=== PATIENT | female | born 1950 | race Caucasian/White ===

== ENCOUNTER 2021-04-09 12:47 | Outpatient (RCR) | payer MEDICARE, SELFPAY | END 2021-05-24 11:06 | disposition home or self-care (01) | LOC: HO.WCC 12:47 | PROVIDERS: PCP Internal Medicine; Visit Provider Physician Assistant | DX: E11.622 Type 2 diabetes mellitus with other skin ulcer (principal); L97.812 Non-pressure chronic ulcer of other part of right lower leg with fat layer exposed; S61.215A Laceration without foreign body of left ring finger without damage to nail, initial encounter; T63.441A Toxic effect of venom of bees, accidental (unintentional), initial encounter; I10 Essential (primary) hypertension; Z87.891 Personal history of nicotine dependence | CPT/HCPCS: 11042; 97597; 99212; 99213; 99214 ==

== ENCOUNTER → 2021-07-19 12:58 | Outpatient (BNV) | payer MEDICARE, SELFPAY | PROVIDERS: PCP Nurse Practitioner Family; Visit Provider Internal Medicine | DX: D46.1 Refractory anemia with ring sideroblasts (principal); D75.839 Thrombocytosis, unspecified | CPT/HCPCS: 99213; 99214 ==

== ENCOUNTER 2021-07-27 12:21 | Day surgery (SDC) | payer MEDICARE, SELFPAY ==
--- NOTE | 2021-07-23 08:43 | HO.ANESPROP2 ---
HPI - Anesthesia Eval Consult details Narrative: 70yo F for Bone Marrow Biopsy PMFSH Active Problems Active Problems: All Active Problems (Updated 07/20/21 @ 08:30 by Shahnaz Kaur MD) Cellulitis (Acute) Wound cellulitis (Acute) Anemia (Chronic) Past Medical History Medical History (Updated 07/20/21 @ 08:30 by Shahnaz Kaur MD) Anxiety Diabetes mellitus Hyperlipidemia Hypertension Insomnia Major depression Pilonidal cyst Family History Family History (Updated 07/20/21 @ 08:32 by Shahnaz Kaur MD) Maternal Aunt Rectal cancer Breast cancer Father Prostate cancer Family/Other Breast cancer Social History Social History Patient Tobacco Use Status: Former Tobacco user Meds Allergies Allergy/AdvReac Type Severity Reaction Status Date / Time No Known Allergies Allergy Verified 04/02/21 10:16 Home Medications Medication Instructions Recorded Confirmed Last Taken Type cholecalciferol (vitamin D3) 25 25 mcg PO DAILY 04/02/21 07/19/21 Unknown History mcg (1,000 unit) capsule fluoxetine 20 mg capsule 20 mg PO DAILY 04/02/21 07/19/21 Unknown History lorazepam 0.5 mg tablet 0.5 mg PO DAILY PRN 04/02/21 07/19/21 Unknown History magnesium oxide 400 mg PO DAILY PRN 04/02/21 07/19/21 Unknown History metformin 500 mg tablet 500 mg PO BID 04/02/21 07/19/21 Unknown History omeprazole 20 mg capsule,delayed 20 mg PO DAILY 04/02/21 07/19/21 Unknown History release zolpidem 10 mg tablet 5 mg PO BEDTIME PRN 04/02/21 07/19/21 Unknown History Exam Exam Date and Time: July 23, 2021 0843 Pertinent Lab Results Pertinent Lab Results: Laboratory Tests 07/19/21 07/19/21 13:49 13:49 WBC 8.9 Hgb 9.4 L Hct 28.1 L Plt Count 631 H Sodium 139 Potassium 4.6 Chloride 107 Carbon Dioxide 25 BUN 24 H Creatinine 0.85 Assessment and Plan Assessment Anesthesia Assessment: Chart Reviewed
[2021-07-27 12:54] VITALS: BMI 27.4
[2021-07-27 13:11] VITALS: BP 156/75; PULSE 85; RESP 16; TEMP 36.7; O2SAT 97
[2021-07-27 13:13] LABS: Glucose, Whole Blood 115 mg/dL (60-115)
--- NOTE | 2021-07-27 13:16 | PC.NURSE ---
Patient arrived to [facility] wearing full upper denture. One tooth on left side chipped down to its base. Patient stated It happened this morning when I woke up, I sleep with my dentures in sometimes and found the tooth in my pillow . Dentures removed for procedure and placed in labeled blue cup.
[2021-07-27] MEDS: Lactated Ringers 1,000 ML 100 ML IVCONT (13:25)
--- NOTE | 2021-07-27 14:00 | PC.NURSE ---
Patient states she took liquid Imodium this afternoon at 12pm. This liquid is not a clear and therefore, per anesthesia, case would have to be delayed. Dr. Kaur and Dr. Matthew at bedside to discuss options with patient. Decision to proceed under Local. Patient passed off to Saji Beth, OR nurse.
[2021-07-27] MEDS: LORazepam 1 MG TABLET PO (14:04)
[2021-07-27 14:45] VITALS: BP 135/69; PULSE 87; RESP 16; TEMP 37.1; O2SAT 99
--- NOTE | 2021-07-27 14:54 | PM.HEMONCBM ---
Bone Marrow Aspiration - Bone Marrow Aspiration Procedure:: Diagnostic bone marrow aspiration and biopsy Pre Op Diagnosis:: Anemia and thrombocytosis Post Op Diagnosis:: Anemia and thrombocytosis Surgeon:: Shahnaz Kaur MD Anesthesia:: Local anesthesia Consent:: Informed consent obtained from the patient for the procedure. Pros and cons of biopsy explained. The patient was willing to proceed with the procedure under local anesthesia. Procedure in Detail:: The patient was positioned in the right lateral decubitus and the left posterior superior iliac spine prepped and draped. Under aseptic precautions, 10 mL of 2% and 5 mL of 1% lidocaine used for local anesthesia. With the Jamshidi needle, 8 mL of aspirate and 1 cm core biopsy obtained without any complications. Bandage was applied and patient was positioned on back for 10 to 15 minutes after the procedure. The patient was advised to call us if she develops any pain or swelling at the surgical site. Follow up in 2 weeks.
[2021-07-27 15:00] VITALS: BP 141/93; PULSE 85; RESP 16; O2SAT 97
[2021-07-27 15:13] VITALS: PULSE 89; RESP 16; TEMP 37.3; O2SAT 96
[2021-07-27 16:31] LABS: Bone Marrow SEE SEPARATE REPORT
== END 2021-07-27 15:15 | disposition home or self-care (01) ==
PROVIDERS: Pathology Anatomic Pathology & Clinical Pathology; PCP Nurse Practitioner Family; Visit Provider Internal Medicine
PROC: (CPT 38221; principal; 2021-07-27 14:00)
DX: D53.9 Nutritional anemia, unspecified (principal); D75.839 Thrombocytosis, unspecified; D75.89 Other specified diseases of blood and blood-forming organs; D46.9 Myelodysplastic syndrome, unspecified; D80.1 Nonfamilial hypogammaglobulinemia; R63.4 Abnormal weight loss; Z68.29 Body mass index [BMI] 29.0-29.9, adult; E11.9 Type 2 diabetes mellitus without complications; I10 Essential (primary) hypertension; E78.5 Hyperlipidemia, unspecified; F41.1 Generalized anxiety disorder; F32.9 Major depressive disorder, single episode, unspecified; Z79.84 Long term (current) use of oral hypoglycemic drugs; Z79.899 Other long term (current) drug therapy; Z87.891 Personal history of nicotine dependence
CPT/HCPCS: 38222; 36415; 81206; 81207; 81219; 81270; 81339; 81347; 82947; 85097; 88184; 88185; 88237; 88264; 88305; 88311; 88313; 88374; J1642; J2250; J3010

== ENCOUNTER 2021-10-02 10:19 | Outpatient (REF) | payer MEDICARE, SELFPAY ==
--- NOTE | ~2021-10-02 | XR_ITS ---
EXAMINATION: XR RIBS, LEFT, AND CHEST CLINICAL INFORMATION: Pleurodynia. COMPARISON: 07/21/2017 TECHNIQUE: 3 views of the left ribs and AP view of the chest were obtained. FINDINGS: Minimal dependent atelectasis or pleural parenchymal scarring at the left lung base.. No consolidation, pneumothorax, or pleural effusion. The cardiomediastinal silhouette and pulmonary vasculature are normal. There is a fracture of the left 10th rib posterolaterally which is possibly subacute to chronic in nature. Subtle periosteal bone formation is suspected in this region. No additional fractures are identified. Degenerative spondylosis is present in the thoracic spine. There is a 1 cm focus of calcific tendinitis at the left proximal humerus, likely at the rotator cuff insertion. XR/XR ribs LT min 3V w CXR1V IMPRESSION: 1. Fracture at the posterolateral aspect of the left 10th rib, possibly subacute to chronic. 2. No additional fractures are identified. 3. No acute pulmonary findings. No pneumothorax or effusion.
== END 2021-10-02 10:20 | disposition home or self-care (01) ==
LOC: HO.HMGCX 10:19
PROVIDERS: PCP Nurse Practitioner Family; Visit Provider Physician Assistant
DX: R07.81 Pleurodynia (principal)
CPT/HCPCS: 71101

== ENCOUNTER 2021-12-23 20:36 | Emergency (ER) | payer MEDICARE, SELFPAY ==
--- NOTE | ~2021-12-23 | CT_ITS ---
EXAMINATION: CT ABDOMEN AND PELVIS WITH CONTRAST CLINICAL INFORMATION: Abdominal pain, diarrhea COMPARISON: None TECHNIQUE: Multidetector volumetric images were obtained from the superior aspect of the liver through the pubic symphysis following administration 85 mL of Omnipaque 350 intravenous contrast. Sagittal and coronal reformatted images were obtained on the technologist's workstation. Oral contrast: No This CT examination was performed using dose optimization techniques as appropriate, variously including the following: *Automated exposure control *Adjustment of mA and/or kV according to patient size (this includes techniques or standardized protocols for targeted exams where dose is matched to indication/reason for exam; i.e. extremities or head) *Use of iterative reconstruction technique DLP: 737 mGy-cm FINDINGS: LUNG BASES: Mild bibasilar atelectasis versus scarring. Coronary artery calcifications are present. Moderate-sized hiatal hernia. LIVER, GALLBLADDER, AND BILIARY TREE: The liver is normal in size, shape, and attenuation. No focal hepatic lesion or biliary ductal dilatation is present. Cholelithiasis is noted. PANCREAS: Unremarkable. SPLEEN: Unremarkable. ADRENAL GLANDS: Unremarkable. KIDNEYS AND URETERS: Bilateral nephrograms are symmetric. There is moderate bilateral hydronephrosis with no obstructing calculus seen. There is a mildly hypodense 1.1 cm lesion in the lower right kidney measuring 51 Hounsfield units. BLADDER: Unremarkable. GASTROINTESTINAL TRACT: No evidence of bowel obstruction. There is colonic diverticulosis without convincing diverticulitis. Assessment for wall thickening in some segments of the colon is limited due to luminal collapse, though no significant pericolonic stranding is seen to strongly suggest a colitis. The appendix is unremarkable. No free fluid or free air is seen. ABDOMINAL WALL: No significant hernia is appreciated. LYMPH NODES: Normal. VASCULAR: There is atherosclerotic calcification along the aorta. PELVIC VISCERA: Unremarkable. OSSEOUS STRUCTURES: Degenerative changes are noted in the spine. CT/CT abdomen pelvis w con IMPRESSION: 1. No acute bowel abnormality identified. 2. Moderate bilateral hydronephrosis without obstructing calculus. 3. Mildly hypodense 1.1 cm lesion in the lower right kidney, indeterminate. This may represent a hyperdense cyst or possibly a mass, and further evaluation with renal ultrasound is recommended. 4. Cholelithiasis. 5. Moderate-sized hiatal hernia.
[2021-12-23 20:44] VITALS: BP 160/61; BP 93/66; PULSE 91; PULSE 96; RESP 18; TEMP 37.1; O2SAT 94; O2SAT 96; BMI 31.3
--- NOTE | 2021-12-23 21:06 | ED.NAVMDI ---
HPI - Nausea/Vomiting/Diarrhea General Chief complaint: Nausea/Vomiting/Diarrhea Stated complaint: Diarrhea/Poor Intake Time Seen by Provider: 12/23/21 21:04 Source: patient Mode of arrival: EMS Limitations: no limitations History of Present Illness MD elicited complaint: diarrhea and abdominal pain Pertinent past history: other (IBS) Onset (ago): week(s) (1) Description of diarrhea: mucus and watery Associated nausea: Yes Associated abdominal pain: Yes Location of pain: epigastric Pain consistency: intermittent Severity: moderate Quality: cramping Exacerbating factors: eating Relieving factors: none Context: other (denies any known risk factors) Associated symptoms: loss of appetite, malaise, nausea/vomiting and weakness Related Data Home Medications Medication Instructions Recorded Confirmed lorazepam 0.5 mg tablet 0.5 mg PO DAILY PRN Anxiety 04/02/21 09/15/21 magnesium oxide 1,000 mg PO DAILY PRN Leg Cramps 04/02/21 09/15/21 metformin 500 mg tablet 500 mg PO BID 04/02/21 09/15/21 zolpidem 10 mg tablet 5 mg PO BEDTIME PRN Insomnia 04/02/21 09/15/21 Imodium 1 mg PO DAILY 07/27/21 09/15/21 copper 2 mg tablet 2 mg PO DAILY 09/01/21 09/15/21 epoetin tawnya 10,000 unit/mL 2,000 unit IV 3XW 10/02/21 injection solution (Procrit) lisinopril 10 mg tablet 10 mg PO DAILY 10/02/21 Previous Rx's Medication Instructions Recorded lidocaine 5 % topical patch 1 patch topical .COMPLEX #15 ea 10/02/21 (Lidoderm) ondansetron 4 mg disintegrating 4 mg PO Q8H PRN nausea and 12/24/21 tablet vomiting #20 tabs Allergies Allergy/AdvReac Type Severity Reaction Status Date / Time No Known Allergies Allergy Verified 10/02/21 09:54 Review of Systems Review of Systems: Constitutional : No Weight loss, No Fever, No Chills ENT/Mouth : No sore throat, No Rhinorrhea Eyes: No Swelling, No Redness Cardiovascular : No Chest Pain, No SOB, NoEdema Respiratory : No Cough, No Sputum, No Wheezing Gastrointestinal : Positive Nausea, no Vomiting, positive Diarrhea, positive abdominal Pain, No Hematochezia, No Melena Genitourinary : No Dysuria, No Urinary Frequency, No Hematuria, No Urgency Musculoskeletal : No joint pain, No Myalgias, No Joint Swelling Skin : No Skin Lesions, No rash Neuro : pos Weakness, No Numbness, No Dizziness, No Headache Psych : No Anxiety/Panic, No Depression Heme/Lymph: No Bruising, No Lymphadenopathy Endocrine : No Polyuria, No Polydipsia All other systems reviewed and are negative. Gastrointestinal: Gastrointestinal: Reports nausea PMFSH Past Medical History Attestation statement: The following information was validated with the patient. Medical History Anxiety Diabetes mellitus Hyperlipidemia Hypertension Insomnia Major depression Pilonidal cyst Surgical History H/O foot surgery H/O removal of cyst History of bone marrow biopsy Family History Family History Maternal Aunt Rectal cancer Breast cancer Father Prostate cancer Family/Other Breast cancer Mother Diabetes Social History Social History Household Members: Spouse Housing: House Are you a primary home care and home health aides teacher to a significant other at home: No Do you presently have visiting nurse or other home services: No Patient Tobacco Use Status: Former Tobacco user Tobacco use type: Cigarette Advance Directives: Yes Advance Directives Information Provided: Yes Advance Directives on File: No service: No Current occupational status: retired Physical Exam Vital Signs: Vital Signs: Last Vital Signs Temp 98.8 F 12/23/21 20:44 Pulse 90 12/23/21 22:15 Resp 14 12/23/21 22:15 BP 136/53 L 12/23/21 22:15 Pulse Ox 97 12/23/21 22:15 O2 Del Method 12/23/21 20:44 BMI result Body Mass Index 31.3 Appearance: Alert. Oriented X3. No acute distress. Eyes: Pupils equal, round and reactive to light. ENT: Pharynx normal. Neck: Normal inspection. Neck supple. CVS: Normal heart rate and rhythm. Pulses normal. Respiratory: No respiratory distress. Breath sounds normal. Abdomen: Soft and mild ttp in periumbilical area Skin: Skin warm and dry. Normal skin color. Normal skin turgor. Extremities: No lower extremity edema. No calf ttp Neuro: Oriented X 3. No motor deficit. No sensory deficit. Course Course Course Narrative: labs stable, no acute findings on CT scan aware she needs renal US, feels much better and wants to go home MDM - Nausea/Vomiting/Diarrhea MDM Narrative Medical decision making narrative: 71 yo female with hx of MDS undergoing weely procrit shots, IBS, here with c/o diarrhea and periumbilical pain x 1 week - denies travel, sick contacts, antibiotics in the last 2 months. At this time will need labs, cdiff study if she can provide stool study, CT scan for colitis. IVF and zofran. Dispo per results and findings. Lab Data Result diagrams: 12/23/21 21:32 12/23/21 21:32 Labs: Lab Results 12/23/21 12/23/21 12/23/21 Range/Units 21:32 21:32 21:32 WBC 10.8 (4.8-10.8) X10*3/uL RBC 2.72 L (4.20-5.50) X10*6/uL Hgb 8.9 L (12.0-16.0) g/dl Hct 27.4 L (37.0-47.0) % MCV 100.7 H (80.0-98.0) fL MCH 32.7 (27.0-33.0) pg MCHC 32.5 (31.0-35.0) g/dl RDW 24.4 H (11.0-16.0) % Plt Count 634 H (160-400) X10*3/uL MPV 10.9 (9.4-12.3) fL Immature Gran % (Auto) 1.4 H (0.0-0.4) % Neut % (Auto) 75.2 H (45-73) % Lymph % (Auto) 12.2 L (20-40) % Benzie % (Auto) 9.2 (2-11) % Eos % (Auto) 1.7 (0-4) % Baso % (Auto) 0.3 (0-2) % Lymph # (Auto) 1.3 (1.2-4.9) X10*3/uL Benzie # (Auto) 1.0 (0.1-1.2) X10*3/uL Eos # (Auto) 0.2 (0.0-0.4) X10*3/uL Baso # (Auto) 0.0 (0.0-0.2) X10*3/uL Abs Immat Gran (auto) 0.15 H (0.00-0.03) X10*3/uL Absolute Neuts (auto) 8.1 (2.0-8.3) x10*3/uL Absolute Nucleated RBC 0.290 H (0.0-0.012) X10*3/uL Nucleated RBC % (auto) 2.7 H (0.0-0.2) /100WBC Smear Tech's Comments VERIFIED Sodium 138 (135-145) mmol/L Potassium 3.6 (3.3-5.1) mmol/L Chloride 107 (96-108) mmol/L Carbon Dioxide 23 (22-29) mmol/L Anion Gap 12 (12-20) BUN 12 (9-16) mg/dL Creatinine 0.89 (0.5-1.4) mg/dL Estim Creat Clear Calc 62.9 Estimated GFR > 60 Random Glucose 183 H (60-115) mg/dL Lactic Acid 1.0 (0.5-2.0) mmol/L Calcium 9.9 (8.4-10.2) mg/dL Magnesium 1.6 (1.6-2.6) mg/dL Total Bilirubin 1.1 H (0.0-1.0) mg/dL Direct Bilirubin 0.4 (0.0-0.5) mg/dL AST 11 (5-31) U/L ALT 10 (0-31) U/L Alkaline Phosphatase 74 (39-117) U/L Total Protein 6.1 L (6.5-8.0) g/dL Albumin 4.0 (3.5-5.0) g/dL Lipase 9 (8-78) U/L Urine Color Urine Appearance Urine pH (5.0-8.0) Ur Specific Graford (1.005-1.025) Urine Protein (NEG-TRACE) MG/DL Urine Glucose (UA) (NEG) MG/DL Urine Ketones (NEG) MG/DL Urine Blood (NEG) Urine Nitrite (NEG) Ur Leukocyte Esterase (NEG) Urine RBC (0) /HPF Urine WBC (0-4) /HPF Ur Squamous Epith Cells /LPF Urine Bacteria /LPF Urine Mucus /LPF COVID-19 (ELANA) (Negative) COVID-19 Clin Com 12/23/21 12/24/21 Range/Units 21:32 00:24 WBC (4.8-10.8) X10*3/uL RBC (4.20-5.50) X10*6/uL Hgb (12.0-16.0) g/dl Hct (37.0-47.0) % MCV (80.0-98.0) fL MCH (27.0-33.0) pg MCHC (31.0-35.0) g/dl RDW (11.0-16.0) % Plt Count (160-400) X10*3/uL MPV (9.4-12.3) fL Immature Gran % (Auto) (0.0-0.4) % Neut % (Auto) (45-73) % Lymph % (Auto) (20-40) % Benzie % (Auto) (2-11) % Eos % (Auto) (0-4) % Baso % (Auto) (0-2) % Lymph # (Auto) (1.2-4.9) X10*3/uL Benzie # (Auto) (0.1-1.2) X10*3/uL Eos # (Auto) (0.0-0.4) X10*3/uL Baso # (Auto) (0.0-0.2) X10*3/uL Abs Immat Gran (auto) (0.00-0.03) X10*3/uL Absolute Neuts (auto) (2.0-8.3) x10*3/uL Absolute Nucleated RBC (0.0-0.012) X10*3/uL Nucleated RBC % (auto) (0.0-0.2) /100WBC Smear Tech's Comments Sodium (135-145) mmol/L Potassium (3.3-5.1) mmol/L Chloride (96-108) mmol/L Carbon Dioxide (22-29) mmol/L Anion Gap (12-20) BUN (9-16) mg/dL Creatinine (0.5-1.4) mg/dL Estim Creat Clear Calc Estimated GFR Random Glucose (60-115) mg/dL Lactic Acid (0.5-2.0) mmol/L Calcium (8.4-10.2) mg/dL Magnesium (1.6-2.6) mg/dL Total Bilirubin (0.0-1.0) mg/dL Direct Bilirubin (0.0-0.5) mg/dL AST (5-31) U/L ALT (0-31) U/L Alkaline Phosphatase (39-117) U/L Total Protein (6.5-8.0) g/dL Albumin (3.5-5.0) g/dL Lipase (8-78) U/L Urine Color YELLOW Urine Appearance HAZY Urine pH 6.0 (5.0-8.0) Ur Specific Graford <= 1.005 (1.005-1.025) Urine Protein NEG (NEG-TRACE) MG/DL Urine Glucose (UA) NEG (NEG) MG/DL Urine Ketones NEG (NEG) MG/DL Urine Blood TRACE (NEG) Urine Nitrite NEG (NEG) Ur Leukocyte Esterase NEG (NEG) Urine RBC 0-2 (0) /HPF Urine WBC 0-2 (0-4) /HPF Ur Squamous Epith Cells 1+ /LPF Urine Bacteria TRACE /LPF Urine Mucus 1+ /LPF COVID-19 (ELANA) Negative (Negative) COVID-19 Clin Com See Note Discharge Plan Discharge Clinical Impression: Diarrhea Qualifiers: Diarrhea type: unspecified type Qualified Code(s): R19.7 - Diarrhea, unspecified Patient Disposition: Home, Self-Care Instructions: Acute Diarrhea (ED) Additional Instructions: return to ED for any worsening symptoms or concerns hemoglobin 8.9 COVID negative incidental gallstones not the cause of today's pain please follow up with your doctor to get Ultrasound of your right kidney CT/CT abdomen pelvis w con IMPRESSION: 1.? No acute bowel abnormality identified.? 2.? Moderate bilateral hydronephrosis without obstructing calculus. 3.? Mildly hypodense 1.1 cm lesion in the lower right kidney, indeterminate. This may represent a hyperdense cyst or possibly a mass, and further evaluation with renal ultrasound is recommended. 4.? Cholelithiasis. 5.? Moderate-sized hiatal hernia Prescriptions: New ondansetron 4 mg tablet,disintegrating 4 mg PO Q8H PRN (Reason: nausea and vomiting) Qty: 20 0RF No Action copper 2 mg Tablet 2 mg PO DAILY Imodium liquid 1 mg PO DAILY zolpidem 10 mg tablet 5 mg PO BEDTIME PRN (Reason: Insomnia) lorazepam 0.5 mg tablet 0.5 mg PO DAILY PRN (Reason: Anxiety) metformin 500 mg tablet 500 mg PO BID magnesium oxide 400 mg magnesium capsule 1,000 mg PO DAILY PRN (Reason: Leg Cramps) lisinopril 10 mg tablet 10 mg PO DAILY Procrit 10,000 unit/mL solution 2,000 unit IV 3XW lidocaine [Lidoderm] 5 % adhesive patch,medicated 1 patch topical .COMPLEX Qty: 15 1RF Rx Instructions: 1 patch topical q12 hours; leave on most painful area for up to 12 hrs
[2021-12-23 21:43] LABS: Basophils Percent Auto 0.3 % (0-2); Eosinophils Absolute Auto 0.2 X10*3/uL (0.0-0.4); Eosinophils Percent Auto 1.7 % (0-4); Hematocrit 27.4 % (37.0-47.0); Hemoglobin 8.9 g/dl (12.0-16.0); Imm Gran Abs Auto 0.15 X10*3/uL (0.00-0.03); Imm Gran Pct Auto 1.4 % (0.0-0.4); Lymphocytes Absolute Auto 1.3 X10*3/uL (1.2-4.9); Lymphocytes Percent Auto 12.2 % (20-40); Mean Corpuscular HGB Conc 32.5 g/dl (31.0-35.0); Mean Corpuscular Hemoglobin 32.7 pg (27.0-33.0); Mean Corpuscular Volume 100.7 fL (80.0-98.0); Mean Platelet Volume 10.9 fL (9.4-12.3); Monocytes Percent Auto 9.2 % (2-11); Neutrophils Absolute Auto 8.1 x10*3/uL (2.0-8.3); Neutrophils Percent Auto 75.2 % (45-73); Platelet Count 634 X10*3/uL (160-400); Red Blood Count 2.72 X10*6/uL (4.20-5.50); Red Cell Distribution Width 24.4 % (11.0-16.0); White Blood Count 10.8 X10*3/uL (4.8-10.8)
[2021-12-23 21:48] LABS: MANUAL DIFF FLAG SCAN; NRBC Pct Auto 2.7 /100WBC (0.0-0.2)
[2021-12-23] MEDS: ondansetron HCL 4 MG/2 ML VIAL IVPUSH (22:00)
[2021-12-23] MEDS: Lactated Ringers 1,000 ML 999 ML IV (22:00)
[2021-12-23 22:03] LABS: Alanine Aminotransferase 10 U/L (0-31); Alkaline Phosphatase 74 U/L (39-117); Anion Gap 12 (12-20); Aspartate Amino Transferase 11 U/L (5-31); Bilirubin Direct 0.4 mg/dL (0.0-0.5); Bilirubin Total 1.1 mg/dL (0.0-1.0); Blood Urea Nitrogen 12 mg/dL (9-16); Calcium 9.9 mg/dL (8.4-10.2); Carbon Dioxide 23 mmol/L (22-29); Chloride 107 mmol/L (96-108); Creatinine Clr Calc Pharmacy 62.9; Estimated Glomerular Filt Rate > 60; Glucose Random 183 mg/dL (60-115); Lipase 9 U/L (8-78); Magnesium 1.6 mg/dL (1.6-2.6); Potassium 3.6 mmol/L (3.3-5.1); Sodium 138 mmol/L (135-145); Total Protein 6.1 g/dL (6.5-8.0)
[2021-12-23 22:05] LABS: IDNOW Serial# 55D5AD1C
[2021-12-23 22:06] LABS: COVID-19 Test Negative (Negative)
[2021-12-23 22:08] LABS: SLIDE REVIEW VERIFIED
[2021-12-23 22:15] VITALS: BP 136/53; PULSE 90; RESP 14; O2SAT 97
--- NOTE | 2021-12-23 23:16 | PC.NURSE ---
Assumed care of pt. at 2300 from Evangelista Narayan RN
[2021-12-23] MEDS: iohexoL 350 MG/ML 100 ML INFUS..BTL 85 ML IV (23:18)
[2021-12-24 00:31] LABS: Appearance Urine HAZY; Color Urine YELLOW; Glucose Urine UA NEG (NEG); Leukocyte Esterase Urine NEG (NEG); Nitrite Urine NEG (NEG); Specific Gravity - Urine <= 1.005 (1.005-1.025); UACC Culture Trigger NO; Urine Blood TRACE (NEG); Urine Ketones NEG (NEG); Urine Protein NEG (NEG-TRACE)
[2021-12-24 00:48] LABS: Bacteria Urine TRACE /LPF; Mucus Urine 1+ /LPF; RBC Urine 0-2 /HPF (0); Squamous Epithelial Cell Urine 1+ /LPF; WBC Urine 0-2 /HPF (0-4)
[2021-12-24 01:21] VITALS: PULSE 86; RESP 18
== END 2021-12-24 01:22 | disposition home or self-care (01) ==
PROVIDERS: Emergency Provider Emergency Medicine; PCP Nurse Practitioner Family
DX: R19.7 Diarrhea, unspecified (principal); R10.33 Periumbilical pain; K80.20 Calculus of gallbladder without cholecystitis without obstruction; K44.9 Diaphragmatic hernia without obstruction or gangrene; N28.9 Disorder of kidney and ureter, unspecified; N13.30 Unspecified hydronephrosis; Z20.822 Contact with and (suspected) exposure to COVID-19; I10 Essential (primary) hypertension; E11.9 Type 2 diabetes mellitus without complications; E78.5 Hyperlipidemia, unspecified; Z79.84 Long term (current) use of oral hypoglycemic drugs; Z79.899 Other long term (current) drug therapy
CPT/HCPCS: 74177; 80048; 80076; 81001; 83605; 83690; 83735; 85025; 87040; 87635; 96361; 96374; 99284; J2405; Q9967

== ENCOUNTER → 2022-11-04 10:49 | Outpatient (REF) | payer MEDICARE, SELFPAY ==
--- NOTE | ~2022-11-04 | NM_ITS ---
EXAMINATION: NM BONE SCAN OF THE WHOLE BODY CLINICAL INFORMATION: Bone pain, hypercalcemia. COMPARISON: No previous bone scan or recent radiographs are available for comparison. CT scan of the abdomen and pelvis dated 12/23/2021 is available for comparison. TECHNIQUE: Multiple gamma scintillation camera images of the whole body were performed 2.5 hours following the intravenous administration of 27 mCi Tc-99m MDP. FINDINGS: There is a subtle increase in contrast between the bones of the axial skeleton and the soft tissues which is most prominent in the skull, spine, pelvis and femurs. In the head, more prominently increased activity is present in a bilaterally symmetrical distribution in the frontal skull, probably due to hyperostosis frontalis interna., In the thoracic cage and upper extremities, there is diffusely increased activity in the humeral heads compared to the remainder of both humeri. There is also minimally increased activity in the acromioclavicular and sternoclavicular joints bilaterally. A small faint focus of increased activity is present just lateral to the costochondral junction of the left sixth rib. In the spine, a minimal thoracolumbar scoliosis is present with lumbar convexity to the left. In addition to the subtly increased activity in the spine diffusely there is a focus of mildly increased activity in the right posterior elements of the lower cervical spine likely due to facet arthropathy. In the pelvis, no focal abnormalities are present superimposed on the subtly increased activity diffusely in the pelvis. In the lower extremities, no focal component is present superimposed on the subtly increased activity diffusely in both femurs. There is focally slightly more prominently increased activity present in the medial lateral compartments of the right knee. No other definite bony abnormalities are noted. The urinary bladder and faint visualization of both kidneys are noted. NM/NM bone scan whole body IMPRESSION: 1. There is a subtle diffuse increase in contrast between the bones and soft tissues which is nonspecific but suggests metabolic bone disease such as hyperparathyroidism, hyperthyroidism, or renal osteodystrophy. This can also be seen with diffuse metastatic disease but the latter is usually shows some heterogeneity. Correlation with parathyroid hormone levels and blood renal function tests is recommended for initial follow-up. 2. Minimal abnormalities in the bilateral acromioclavicular and sternoclavicular joints and right knee are likely arthritic in etiology and a faint abnormality in the anterior aspect of the right sixth rib is nonspecific but most consistent with continued bone remodeling at a previous fracture.
== END ==
LOC: HO.NUCMED 10:49
PROVIDERS: Visit Provider Internal Medicine
DX: D46.9 Myelodysplastic syndrome, unspecified (principal); E83.52 Hypercalcemia
CPT/HCPCS: 78306; A9503

== ENCOUNTER 2022-11-08 11:36 | Outpatient (REF) | payer MEDICARE, SELFPAY ==
--- NOTE | ~2022-11-08 | US_ITS ---
EXAMINATION: US VENOUS ULTRASOUND WITH DOPPLER LOWER EXTREMITY, RIGHT CLINICAL INFORMATION: Pain COMPARISON: None available. TECHNIQUE: Ultrasound of the deep veins is performed from the hip to the calf with compression sonography and color and pulse Doppler assessment. Spectral analysis with color-flow imaging is performed. FINDINGS: There is normal venous compression and respiratory variation and augmented flow. The visualized common femoral vein, superficial femoral vein, profunda femoral vein, popliteal vein, and the trifurcation region shows no evidence of deep venous thrombosis. There is no significant popliteal fossa cyst. US/US venous duplex LE RT IMPRESSION: No DVT demonstrated in the right lower extremity.
== END 2022-11-08 11:37 | disposition home or self-care (01) ==
LOC: HO.US 11:36
PROVIDERS: PCP Nurse Practitioner Family; Visit Provider Nurse Practitioner Family
DX: M79.604 Pain in right leg (principal)
CPT/HCPCS: 93971

== ENCOUNTER 2022-12-09 10:57 | Outpatient (REF) | payer MEDICARE, SELFPAY ==
--- NOTE | ~2022-12-09 | CT_ITS ---
EXAMINATION: CT ABDOMEN AND PELVIS WITHOUT AND WITH CONTRAST CLINICAL INFORMATION: Renal mass follow-up COMPARISON: Baseline 12/23/2021 TECHNIQUE: Multidetector volumetric imaging was performed of the abdomen and pelvis before and after the IV administration of mL of Omnipaque 300 intravenous contrast. Sagittal and coronal reformatted images were obtained on the technologist's workstation. This CT examination was performed using dose optimization techniques as appropriate, variously including the following: *Automated exposure control *Adjustment of mA and/or kV according to patient size (this includes techniques or standardized protocols for targeted exams where dose is matched to indication/reason for exam; i.e. extremities or head) *Use of iterative reconstruction technique DLP: 698 mGy-cm FINDINGS: LUNG BASES: The visualized lung bases are unremarkable. LIVER, GALLBLADDER, AND BILIARY TREE: The liver is normal in size, shape, and attenuation. No focal hepatic lesion or biliary ductal dilatation is present. Incidental gallstone. PANCREAS: Unremarkable SPLEEN: Unremarkable ADRENAL GLANDS: Unremarkable KIDNEYS AND URETERS: Right lower pole posterior renal cortical well-defined lesion is similar. Measures up to approximately 13 mm. When remeasured on the previous using comparable technique, it appears similar. This lesion is hyperdense on the nonenhanced study measuring 56 Hounsfield units demonstrates no significant enhancement. No perinephric collections. Prominence of renal pelvis by without any obstructing source similar. BLADDER: Unremarkable GASTROINTESTINAL TRACT: Diverticulosis without acute inflammatory changes. No small bowel pathology. Normal appendix. Large axial type hiatus hernia. ABDOMINAL WALL: No significant hernia is appreciated. LYMPH NODES: Normal VASCULAR: Unremarkable PELVIC VISCERA: Unremarkable OSSEOUS STRUCTURES: Unremarkable CT/CT abdomen pelvis wo/w IV con IMPRESSION: Stable right renal lesion favoring a hyperdense cyst. No enhancement. Continue 6 month follow-up imaging recommended. Bosniak 2F. No new findings. Fleischner guidelines were followed.
== END 2022-12-09 10:58 | disposition home or self-care (01) ==
LOC: HO.CT 10:57
PROVIDERS: PCP Nurse Practitioner Family; Visit Provider Internal Medicine
DX: N28.89 Other specified disorders of kidney and ureter (principal)
CPT/HCPCS: 74178; Q9967

== ENCOUNTER 2023-01-02 10:46 | Outpatient (AMB) | payer MEDICARE, SELFPAY ==
--- NOTE | 2023-01-02 10:48 | MHC.OFFWIV ---
Intake Vital Signs 01/02/23 10:53 Height 5 ft 6 in BP 138/62 Blood Pressure Location Rt brachial Position Sitting Pulse 99 Pulse Source Pulse Oximeter Temp 97.8 F Temp Source Temporal Artery Scan Pulse Oximetry (%) 100 Oxygen Delivery Method Room Air Intake Visit Reasons: EST/bee sting on left arm Intake Note: Pt is here c/o having a bee sting around her left armpit. Patient Tobacco Use Status: Former Tobacco user Allergies No Known Allergies Allergy (Verified 01/02/23 10:53) Do you need a note to return to daycare/school/sports/work: No HPI EST/bee sting on left arm HPI Details Patient presents today for a bee sting reaction. States she was stung yesterday on the underside of her left upper arm by what she thinks to be a yellow jacket bee. She has had moderate local reactions to bees in the past. She denies any shortness of breath, wheezing, or any other symptoms aside from swelling and itching on her arm. No hives. [facility] Medical History Anxiety Diabetes mellitus Hyperlipidemia Hypertension Insomnia Major depression Pilonidal cyst Surgical History H/O foot surgery H/O removal of cyst History of bone marrow biopsy Family History Maternal Aunt Rectal cancer Breast cancer Father Prostate cancer Family/Other Breast cancer Mother Diabetes Social History Household Members: Other Household Members Other:: roomate Housing: House Are you a primary residential caregiver to a significant other at home: No Do you presently have visiting nurse or other home services: No Patient Tobacco Use Status: Former Tobacco user Tobacco use type: Cigarette service: No Current occupational status: retired Review of Systems Const All systems reviewed & are unremarkable except as noted in HPI and below Physical Exam Vital Signs: Last Vital Signs Temp 97.8 F 01/02/23 10:53 Pulse 99 01/02/23 10:53 BP 138/62 01/02/23 10:53 Pulse Ox 100 01/02/23 10:53 Oxygen Delivery Method Room Air 01/02/23 10:53 Const General: cooperative, healthy appearing, comfortable and no acute distress HEENT Head: Yes normal to inspection Resp Effort & Inspection: normal respiratory effort and able to speak in complete sentences Auscultation: clear to auscultation bilaterally Cardio Jugular venous distension: no JVD Palpation: normal PMI Rate: regular rate Rhythm: regular rhythm Skin Other: Left upper arm site of bee sting - no stinger identified. Surrounding local reaction with erythema and swelling extending to elbow. Extrem General: Yes capillary refill normal Shoulder/upper arm images: 1. bee sting local reaction Psych Appearance: grossly normal Assessment & Plan Assessment & Plan (1) Local reaction to bee sting: Code(s): T63.441A - Toxic effect of venom of bees, accidental (unintentional), initial encounter Qualifiers: Encounter type: initial encounter Injury intent: accidental or unintentional Qualified Code(s): T63.441A - Toxic effect of venom of bees, accidental (unintentional), initial encounter Plan: Prednisone x3 days for bee sting reaction. Advised patient she can continue to use Zyrtec or Benadryl, and may ice the area as needed. Reviewed indications, use, possible side effects of medication. If she does not improve with treatment or if symptoms worsen or new symptoms develop, she should return to the clinic for further evaluation. She has a bone marrow biopsy with her oncologist/television maintenance man at [facility] later this week. I encouraged her to call office and inform them of today's visit. She agrees to plan. Medications: New prednisone 20 mg PO BID 3 days 6 tabs 0RF T63.441A - Toxic effect of venom of bees, accidental (unintentional), initial encounter Coding Level of Care Code Est Pt Level 3 (65755) Diagnoses Local reaction to bee sting T63.441A Encounter type: initial encounter Injury intent: accidental or unintentional
[2023-01-02 10:53] VITALS: BP 138/62; PULSE 99; TEMP 36.6; O2SAT 100
== END 2023-01-02 11:06 | disposition home or self-care (01) ==
PROVIDERS: PCP Nurse Practitioner Family; Visit Provider Nurse Practitioner Family
DX: T63.441A Toxic effect of venom of bees, accidental (unintentional), initial encounter (principal)
CPT/HCPCS: 99213

== ENCOUNTER 2023-01-05 08:54 | Day surgery (SDC) | payer MEDICARE, SELFPAY ==
--- NOTE | ~2023-01-05 | CT_ITS ---
Bone marrow biopsy INDICATIONS: Macrocytic anemia After informed and written consent was obtained in official timeout was performed immediately prior to the procedure. I was personally responsible for the administration of moderate sedation services, all requirements were followed, an independent training observer was utilized. Conscious sedation was initiated at 11:00 AM and discontinued at 11:30 AM. PROCEDURE: The skin was prepped and draped in usual fashion. 1% lidocaine was utilized over the left posterior ischial wing. Under CT guidance a bone marrow biopsy needle was then placed from a posterior approach into the left ischial wing. The position of the core biopsy needle was confirmed under CT guidance. In 0.5 mL of 1000 units of heparin per cc syringe 5 mL of bloody fluid was aspirated from the ischial wing. An additional 5 mL was aspirated and put in a EDTA coated syringe. Core biopsy needle was then placed into core biopsy samples were obtained and felt to be adequate for diagnostic purposes on gross inspection. The needle was removed and hemostasis obtained after manual compression for [address]/CT biopsy aspirate bone marrow IMPRESSION: CT-guided bone marrow biopsy of the left ischial ramus.
[2023-01-05 08:32] VITALS: BMI 26.8
[2023-01-05 09:06] VITALS: BP 134/68; PULSE 89; RESP 18; TEMP 36.1; O2SAT 97
[2023-01-05 09:08] LABS: Glucose, Whole Blood 104 mg/dL (60-115)
[2023-01-05 09:40] LABS: MANUAL DIFF FLAG NO
[2023-01-05 09:46] LABS: Basophils Percent Auto 0.1 % (0-2); Eosinophils Absolute Auto 0.3 X10*3/uL (0.0-0.4); Eosinophils Percent Auto 4.1 % (0-4); Hematocrit 26.9 % (37.0-47.0); Hemoglobin 8.7 g/dl (12.0-16.0); Imm Gran Abs Auto 0.04 X10*3/uL (0.00-0.03); Imm Gran Pct Auto 0.6 % (0.0-0.4); Lymphocytes Absolute Auto 2.5 X10*3/uL (1.2-4.9); Lymphocytes Percent Auto 36.1 % (20-40); Mean Corpuscular HGB Conc 32.3 g/dl (31.0-35.0); Mean Corpuscular Volume 95.7 fL (80.0-98.0); Mean Platelet Volume 10.6 fL (9.4-12.3); Monocytes Absolute Auto 0.8 X10*3/uL (0.1-1.2); Neutrophils Absolute Auto 3.3 x10*3/uL (2.0-8.3); Neutrophils Percent Auto 48.1 % (45-73); Platelet Count 848 X10*3/uL (160-400); Red Blood Count 2.81 X10*6/uL (4.20-5.50); Red Cell Distribution Width 24.1 % (11.0-16.0); White Blood Count 6.9 X10*3/uL (4.8-10.8)
[2023-01-05 09:52] LABS: INTERNATIONAL NORM RATIO 1.1 (0.9-1.1); Prothrombin Time 13.2 SEC (11.1-13.3)
[2023-01-05 09:55] LABS: Partial Thromboplastin Time 24.6 SEC (26.0-36.4)
[2023-01-05 11:49] LABS: Bone Marrow SEE SEPARATE REPORT
[2023-01-05 11:55] VITALS: BP 116/58; PULSE 78; RESP 16; TEMP 36.6; O2SAT 97
[2023-01-05 12:10] VITALS: BP 112/64; PULSE 82; RESP 16; O2SAT 98
[2023-01-05 12:15] LABS: Glucose, Whole Blood 99 mg/dL (60-115)
[2023-01-05 12:25] VITALS: BP 116/67; PULSE 75; RESP 14; O2SAT 97
[2023-01-05 12:40] VITALS: BP 126/70; PULSE 79; RESP 16; O2SAT 97
[2023-01-05 12:55] VITALS: BP 121/66; PULSE 78; RESP 16; TEMP 36.5; O2SAT 96
--- NOTE | 2023-01-10 10:13 | PM.PROC ---
Brief Operative Note Date of procedure: 01/05/23 Pre-op diagnosis: anemia Procedure: bone marrow biopsy Anesthesia: MAC Surgeon: Cornelio Camacho Estimated blood loss (mL): 0 Condition: stable Disposition: same day
== END 2023-01-05 13:15 | disposition home or self-care (01) ==
PROVIDERS: Internal Medicine; Radiology Diagnostic Radiology; PCP Nurse Practitioner Family; Visit Provider Radiology Vascular & Interventional Radiology
DX: D46.9 Myelodysplastic syndrome, unspecified (principal); I10 Essential (primary) hypertension; E11.9 Type 2 diabetes mellitus without complications; Z79.84 Long term (current) use of oral hypoglycemic drugs; Z79.899 Other long term (current) drug therapy; Z87.891 Personal history of nicotine dependence
CPT/HCPCS: 36415; 38222; 82947; 85025; 85610; 85730; 88184; 88185; 88237; 88264; 88305; 88311; 88313; 88342; 99152; 99153; J1642; J2250; J3010

== ENCOUNTER → 2023-01-05 08:54 | Outpatient (BNV) | payer MEDICARE, SELFPAY | PROVIDERS: PCP Nurse Practitioner Family; Visit Provider Radiology Vascular & Interventional Radiology | DX: D64.9 Anemia, unspecified (principal) | CPT/HCPCS: 38221 ==

== ENCOUNTER → 2023-01-05 10:57 | Outpatient (BNV) | payer MEDICARE, SELFPAY | PROVIDERS: PCP Nurse Practitioner Family; Visit Provider Radiology Vascular & Interventional Radiology | DX: D46.9 Myelodysplastic syndrome, unspecified (principal) | CPT/HCPCS: 38222 ==

== ENCOUNTER 2023-03-27 13:50 | Emergency (ER) | payer MEDICARE, SELFPAY ==
--- NOTE | ~2023-03-27 | CT_ITS ---
EXAMINATION: CT ANGIOGRAM OF THE CHEST WITH CONTRAST (CT PULMONARY ANGIOGRAM FOR PE) CLINICAL INFORMATION: Myelodysplastic syndrome, PLT 4.5 million, hypoxic COMPARISON: Abdomen CT from 12/09/2022 TECHNIQUE: Prior to contrast administration, noncontrast localization images were obtained. Subsequently, multidetector volumetric imaging was performed from the thoracic inlet to below the diaphragms following the administration of 65 mL Omnipaque 350 intravenous contrast. No contrast reaction reported. Sagittal, coronal, and MIP oblique sagittal reformatted images were obtained on the CT workstation, uploaded to PACS, and reviewed. This CT examination was performed using dose optimization techniques as appropriate, variously including the following: *Automated exposure control *Adjustment of mA and/or kV according to patient size (this includes techniques or standardized protocols for targeted exams where dose is matched to indication/reason for exam; i.e. extremities or head) *Use of iterative reconstruction technique DLP: Total exam dose-length product 313.33 mGy-cm (for images acquired through the chest for PE protocol). Please refer to the dose data sheet for all information regarding CT exams of the head and chest. FINDINGS: LUNGS AND PLEURA: Lungs are diffusely abnormal. There are nonspecific patchy groundglass, airspace and reticular opacities within both lungs.. Differential diagnosis would include infectious or noninfectious pneumonitis or perhaps pulmonary parenchymal hemorrhage. No pleural effusion or pneumothorax. QUALITY OF STUDY/CONTRAST BOLUS: Satisfactory. PULMONARY ARTERIES: The pulmonary arteries are normal in size. No embolic filling defects within the main, lobar or segmental vessels. OTHER CARDIOVASCULAR: The heart size is normal. No pericardial effusion. There is atherosclerotic calcification of coronary arteries. Thoracic aorta is normal in caliber; no aneurysm or dissection. MEDIASTINUM/LOWER NECK: Moderate hiatal hernia. No mediastinal mass. Thyroid gland is grossly unremarkable. LYMPHATICS: No pathologic sized lymph nodes. UPPER ABDOMEN: Splenomegaly is present. The spleen is 14.6 cm AP dimension. OSSEOUS STRUCTURES: Multilevel degenerative arthropathy of the visualized lower cervical and thoracic spine. No acute or suspicious osseous abnormality. Incidentally noted are small foci of calcium deposition in the region of the infraspinatus tendon of the rotator cuff of the right shoulder. CT/CT angio chest PE protocol IMPRESSION: * No evidence of pulmonary embolism. * Nonspecific patchy airspace, groundglass and reticular opacities are present in both lungs. No pleural effusion. * Moderate hiatal hernia. * Splenomegaly is noted in this patient with history of myelodysplastic syndrome.
--- NOTE | ~2023-03-27 | CT_ITS ---
EXAMINATION: CT HEAD WITHOUT CONTRAST CLINICAL INFORMATION: Headache. Myelodysplastic syndrome. Elevated platelets. COMPARISON: No relevant prior imaging. TECHNIQUE: Contiguous axial imaging was performed from the skull base to vertex without intravenous administration of contrast. This CT examination was performed using dose optimization techniques as appropriate, variously including the following: *Automated exposure control *Adjustment of mA and/or kV according to patient size (this includes techniques or standardized protocols for targeted exams where dose is matched to indication/reason for exam; i.e. 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 Scattered nonspecific foci of hypoattenuation are also visualized within the periatrial white matter. Dominguez-white matter differentiation is otherwise preserved and there is no evidence of acute territorial infarct. No acute hemorrhage or abnormal extra axial collection. No hydrocephalus. The calvarium and skull base are intact. Mastoid air cells and middle ear cavities are well aerated. There are a few small retention cysts within the alveolar recess of the right maxillary sinus. Otherwise no active paranasal sinus disease. 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 No evidence of acute territorial infarct or hemorrhage.
--- NOTE | 2023-03-27 14:04 | ED_ITS ---
HPI - General Adult General Chief complaint: General Medical Stated complaint: abnormal labs Time Seen by Provider: 03/27/23 14:11 Source: patient and other (Dr. Kaur) Mode of arrival: wheelchair (From oncologist office) Limitations: no limitations History of Present Illness HPI narrative: 72-year-old female with a history of mild dysplastic syndrome with ring siseroblasts and thrombocytosis diagnosis July 2019 with macrocytic anemia since January of 2019 who was seen today by her oncologist, Dr. Kaur for headache with new onset of blurred vision intermittently. She denied chest pain but states that she was getting easily winded she had no nausea or vomiting. Patient was noted to have platelet count today of 4.5 million. The patient's oncologist is concerned that her symptoms especially her intermittent visual changes due to severe thrombocytosis and refer the patient to the emergency department. Dr. Kaur states that the patient needs plasmapheresis which is not done at this facility. Given the fact that she may be symptomatic, Dr. Kaur sent the patient to the emergency department and requested that we try to find a facility that can except the patient in transfer for evaluation and plasmapheresis. Dr. Kaur recommended starting the patient on hydroxyurea 1000 mg q.12 hours. I ordered the 1st dose here in the emergency department. Patient states that states that last week she lost complete vision her left INR right eye vision was blurred she states that these symptoms resolved yesterday she states that over the past 2 weeks she has been having head headaches mainly at night. She states that the headache is located diffusely throughout her head, she describes it as a throbbing sensation which is 8/10 at its worse and resolves in the morning. Review of systems was positive for subjective fever and chills x2 days, shortness of breath and dyspnea exertion x2 days, diarrhea this morning and nausea with no vomiting. The following information was obtained from Dr. Kaur office note today, 03/27/2023 Assessment and Plan Patient Active problem list reviewed?: Yes (1) Anemia Status: Chronic Assessment and plan: 1. 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 Bone marrow biopsy performed 07/27/2021 revealed hypercellular erythroid dominant marrow with dysmegakaryopoiesis and ring sideroblasts. Concurrent flow cytometry was normal; cytogenetics have a normal female karyotype, EPRNELL-2 mutation test was negative and no abnormalities are seen with MDS FISH panel (chromosomes 8, 20, 7, 5 and MLL). 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 No abnormalities detected in FLT3, IDH1, IDH2 and NPM1 genes. SF3B1 mutation is associated with favorable prognosis and highly predictive of ring sideroblasts. Serum erythropoietin level 49.2 mIU/mL. IPSS-M is low risk. She did not respond to Procrit therapy. She was switched to Luspatercept 1mg/kg every 3 weeks. She received 1st dose on 03/03/2022. Luspatercept was stopped because of thrombocytosis, counts over 1.2 million. Because of severe thrombocytosis, JAK2 mutation including Exon 12/13 mutation, CALR, MPL and BCR/ABL mutations were negative. Repeat bone marrow biopsy was performed in January 2023. This showed hypercellular erythroid dominant marrow with increased iron stores and ring sideroblasts. No increase in blasts. Mildly increased reticulin fibrosis. Concurrent flow cytometry is negative for increased blasts. Cytogenetics was normal female karyotype 46 XX. She was treated with a combination of Hydrea and blood transfusion for a few weeks. Since she was not able to tolerate Luspatercept secondary to severe thrombocytosis, her treatment is being switched to decitabine 20 milligram/meter sq IV for 3-5 days to be repeated every 4 weeks. She received 1st cycle decitabine total dose 37.5 mg from 02/27 to 03/03/2023. Her hemoglobin dropped to 7.3 gram/dL on 03/09/2023 with platelets of 708 K. Fortunately since 03/20/2023 her platelet counts have begun to increase. Her platelet counts are now over 4.5 million. 2. Mild hypercalcemia. She was advised to stop vitamin-D as well as supplements for hair and skin. Calcium levels are coming down. Bone scan suggested metabolic disease such as hyperparathyroidism or renal osteodystrophy. PTH, TSH were normal and she does not have kidney disease. 3. Severe thrombocytosis along with symptoms of headache and blurry vision. She has been referred to emergency department. Start hydroxyurea 1 mg q.12 hours. She may need platelet pheresis. She will need transfer to tertiary center where this is possible. Follow-up in 3 weeks. - Time Spent With Patient Time Spent with Patient (in minutes): 15 Dictated By: Shahnaz Kaur MD Signed By: <Electronically signed by Shahnaz Kaur MD> 03/27/23 7955 Related Data Home Medications Medication Instructions Recorded Confirmed lorazepam 0.5 mg tablet 0.5 mg PO DAILY PRN Anxiety 04/02/21 02/21/23 metformin 500 mg tablet 500 mg PO BID 04/02/21 02/21/23 zolpidem 10 mg tablet 5 mg PO BEDTIME PRN Insomnia 04/02/21 02/21/23 Imodium 1 mg PO DAILY 07/27/21 02/21/23 copper 2 mg tablet 2 mg PO DAILY 09/01/21 02/21/23 epoetin tawnya 10,000 unit/mL 2,000 unit IV 3XW 10/02/21 02/21/23 injection solution (Procrit) lisinopril 10 mg tablet 10 mg PO DAILY 10/02/21 02/21/23 epinephrine 0.3 mg/0.3 mL 0.3 mg IM Q4H PRN Anaphylaxis 01/09/23 02/21/23 injection, auto-injector Previous Rx's Medication Instructions Recorded lidocaine 5 % topical patch 1 patch topical .COMPLEX #15 ea 10/02/21 (Lidoderm) omeprazole magnesium 20 mg 20 mg PO DAILY #30 tabs 11/30/22 tablet,delayed release (Prilosec OTC) prednisone 20 mg tablet 20 mg PO BID 3 days #6 tabs 01/02/23 hydroxyurea 500 mg capsule (Hydrea) 500 mg PO DAILY #30 caps 02/21/23 ondansetron 4 mg disintegrating 4 mg PO Q8H PRN nausea and 02/27/23 tablet vomiting #20 tabs Allergies Allergy/AdvReac Type Severity Reaction Status Date / Time bee pollen [bee stings] Allergy Severe Anaphylaxis Verified 01/09/23 09:24 Review of Systems Review of Systems: Yes all other systems are reviewed and are negative REPLACED BY [facility] Past Medical History REPLACED BY [facility] Narrative: Social history: Patient is a former smoker, she stopped 25 years prior, she denies tobacco and drug use. Medical History Anxiety Diabetes mellitus Hyperlipidemia Hypertension Insomnia Major depression Pilonidal cyst Surgical History H/O foot surgery H/O removal of cyst History of bone marrow biopsy Family History Family History Maternal Aunt Rectal cancer Breast cancer Father Prostate cancer Family/Other Breast cancer Mother Diabetes Social History Social History Household Members: Other Household Members Other:: roomate Housing: House Are you a primary point of care technician to a significant other at home: No Do you presently have visiting nurse or other home services: No Patient Tobacco Use Status: Former Tobacco user Tobacco use type: Cigarette Smoked in Last 30 Days: No Use of substances other than those prescribed or required for medical reasons: No Advance Directives: Yes Advance Directives Information Provided: No Advance Directives on File: No service: No Current occupational status: retired Physical Exam ED Vital Signs: Vital Signs - 24 hr 03/27/23 14:08 03/27/23 15:19 03/27/23 16:29 Temperature 97.3 F Pulse Rate 100 103 H Respiratory Rate 18 19 Blood Pressure 122/64 Pulse Oximetry 93 86 L 94 Oxygen Delivery Method Nasal Cannula Room Air Nasal Cannula Oxygen Flow Rate 3 BMI result Body Mass Index 32.3 Course Course Course Narrative: RME performed by Madeleine Boone PA-C. Patient is a 72 year old assigned fema le at presenting to the emergency department from the oncology department for transfer to a center with specific platelet services. Patient placed back in the waiting room pending room availability. Medications Administered Generic Name Dose Route Start Last Admin Trade Name Freq PRN Reason Stop Dose Admin Sodium Chloride 1,000 mls @ 150 mls/hr 03/27/23 14:59 03/27/23 16:33 Ns IV 03/27/23 21:38 150 mls/hr .[id number] STA Administration Discontinued Medications Generic Name Dose Route Start Last Admin Trade Name Freq PRN Reason Stop Dose Admin Hydroxyurea 1,000 mg 03/27/23 14:38 03/27/23 16:33 Hydroxyurea 500 Mg Capsule PO 03/27/23 14:39 1,000 mg ONCE STA Administration Iohexol 100 ml 03/27/23 15:43 03/27/23 15:44 Iohexol 350 Mg/Ml 100 Ml Infus..Btl IV 03/27/23 15:44 65 ml ONCE ONE Administration Medical Decision Making Medical Decision Making MDM Narrative: 72-year-old female with history of depression, insomnia, hyperlipidemia, hypertension, diabetes mellitus, anxiety, myelodysplastic syndrome who was referred to the emergency department for evaluation of vision change and elevated platelet count of 4.5 million. Patient had a visual change 1 week prior that involve loss of ill felder the left eye, blurred vision in the right eye with symptoms resolving 2 days prior pain. Over the past 2 days she has had subjective fever and chills, she has had shortness of breath and dyspnea on exertion with nausea and diarrhea but no vomiting. Patient was noted to have an O2 saturation of 86% on room air here in the emergency department and on 2 L via nasal cannula O2 saturation is 92%. I ordered the following evaluation: COVID- 19, influenza, PT/INR, PTT, troponin, BNP, lactic acid, blood cultures x2, EKG, CT head, CT pulmonary angiogram PE protocol. Patient was ordered to get normal saline at 150 mL/hr and hydroxyurea 1000 mg orally. 17:53 Patient's laboratory evaluation revealed negative COVID-19 influenza, patient BNP mildly elevated 102. PT/INR PTT were unremarkable. High sensitive troponin I was detectable but not elevated at 4.5. Twelve EKG was unremarkable. CT the brain revealed no acute findings. CT pulmonary angiogram PE protocol revealed no PE but the patient does have nonspecific patchy airspace/ground glass opacities consistent with atypical pneumonia. Patient was treated with ceftriaxone 1 g IV and Zithromax 500 mg IV for atypical pneumonia. I ordered a respiratory panel to evaluate for other possible viral illnesses. At this time, the patient will need to be transferred to a facility that can do plasmapheresis for elevated platelet count. 18:25 I did contact [facility] and [facility] they were both closed due to capacity I did discuss the patient with the [facility] transfer line and the patient was accepted as an ED to ED transfer to [facility] Differential Diagnosis Differential Diagnoses: The differential diagnosis associated with the presentation includes Differential diagnosis includes was not limited to COVID-19, influenza, pneumonia, pulmonary embolism, myocardial infarction, myocardial ischemia, pulmonary edema, thromboembolic event Admission/Observation Consideration of admission/observation: Escalation of care including admission/observation considered Consult Healthcare Provider Management of the patient was discussed with: Senior Java Web Application Developer (Dr. Kaur) Lab Data [facility] Lab Attestation statement: I reviewed the patient's lab results. My independent interpretation patient's laboratory evaluation is as follows: Ch ronic anemia with an H&H of 7.2 and 23.4, elevated platelet counts 4.5 million, the BNP mildly elevated 102, high sensitive troponin I detectable but not elevated, lactic acid normal 1.4. COVID 19 influenza negative. Labs: Lab Results 03/27/23 03/27/23 Range/Units 16:04 16:14 PT 15.9 H D (11.1-13.3) SEC INR 1.3 H (0.9-1.1) APTT 31.8 D (26.0-36.4) SEC Lactic Acid 1.4 (0.5-2.0) mmol/L Troponin I High Sens 4.5 (<3.5-17.0) ng/L B-Natriuretic Peptide 102 H (<100) pg/mL COVID-19 (ELANA) Negative (Negative) COVID-19 Clin Com See Note Influenza Type A (NETO) Negative (Negative) Influenza Type B (NETO) Negative (Negative) Influenza A & B Note See Note Independent Interpretation I performed an independent interpretation of an: EKG Interpretation: My independent interpretation patient's 12 EKG done at 15:46 hours is as follows: Normal sinus rhythm rate of 98, normal SC interval, QRS duration QTC interval, no ST segment elevation, no ST segment depression, no PACs, no PVCs Radiology Impression Discussion of test interpretation with radiology: I have reviewed the radiologist's reading. Radiologist Impression: CT angio chest PE protocol IMPRESSION: * No evidence of pulmonary embolism. * Nonspecific patchy airspace, groundglass and reticular opacities are present in both lungs. No pleural effusion. * Moderate hiatal hernia. * Splenomegaly is noted in this patient with history of myelodysplastic syndrome. 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 No evidence of acute territorial infarct or hemorrhage. Dictated By: Faisal Raymundo MD External Record Review External record reviewed: Office record (Dr. Do well as office note from today) Chronic Conditions Patient?s care impacted by: Other (Mild dysplastic disorder) Critical Care Time Critical Care Time Critical Care Time: Yes Total Critical Care Time: 45 Attestation: Critical Care: The patient was critically ill with a high probability of imminent or life threatening deterioration. I spent greater than 30 minutes of discontinuous time evaluating the patient,delivering critical care at the bedside, discussing and evaluating pertinent data with consultants. Critical care time does not include time spent performing separately billable procedures or teaching. Total time spent performing critical care was 45 minutes. Discharge Plan Discharge Clinical Impression: Pneumonia, Hypoxia, Thrombocytopenia Patient Disposition: [facility] Transfer Details: ED to ED transfer [facility] Prescriptions: No Action copper 2 mg Tablet 2 mg PO DAILY omeprazole magnesium [Prilosec OTC] 20 mg Tablet,Delayed Release (Dr/Ec) 20 mg PO DAILY Qty: 30 3RF epinephrine [Epi E-Z Pen] 0.3 mg/0.3 mL Auto-Injector 0.3 mg IM Q4H PRN (Reason: Anaphylaxis) hydroxyurea [Hydrea] 500 mg Capsule 500 mg PO DAILY Qty: 30 1RF ondansetron 4 mg tablet,disintegrating 4 mg PO Q8H PRN (Reason: nausea and vomiting) Qty: 20 0RF Imodium liquid 1 mg PO DAILY zolpidem 10 mg tablet 5 mg PO BEDTIME PRN (Reason: Insomnia) lorazepam 0.5 mg tablet 0.5 mg PO DAILY PRN (Reason: Anxiety) metformin 500 mg tablet 500 mg PO BID lisinopril 10 mg tablet 10 mg PO DAILY Procrit 10,000 unit/mL solution 2,000 unit IV 3XW lidocaine [Lidoderm] 5 % adhesive patch,medicated 1 patch topical .COMPLEX Qty: 15 1RF Rx Instructions: 1 patch topical q12 hours; leave on most painful area for up to 12 hrs prednisone 20 mg tablet 20 mg PO BID 3 Days Qty: 6 0RF
[2023-03-27 14:08] VITALS: BP 122/64; PULSE 100; RESP 18; TEMP 36.3; O2SAT 93; BMI 32.3
--- NOTE | 2023-03-27 15:00 | ECG_ITS ---
Test Reason : CHEST PAIN, HYPOXIA Blood Pressure : / mmHG Vent. Rate : 098 BPM Atrial Rate : 098 BPM P-R Int : 152 ms QRS Dur : 084 ms QT Int : 348 ms P-R-T Axes : 040 046 074 degrees QTc Int : 444 ms Normal sinus rhythm Nonspecific ST abnormality Abnormal ECG No previous ECGs available Referred By: David Arrington Electronically Signed By:MARGE BRIGHT MD
[2023-03-27 15:19] VITALS: O2SAT 86
[2023-03-27] MEDS: iohexoL 350 MG/ML 100 ML INFUS..BTL IV (15:44)
[2023-03-27 16:22] LABS: INTERNATIONAL NORM RATIO 1.3 (0.9-1.1); Prothrombin Time 15.9 SEC (11.1-13.3)
[2023-03-27 16:23] LABS: Lactic Acid 1.4 mmol/L (0.5-2.0)
[2023-03-27 16:24] LABS: Partial Thromboplastin Time 31.8 SEC (26.0-36.4)
[2023-03-27 16:29] VITALS: PULSE 103; RESP 19; O2SAT 94
[2023-03-27] MEDS: Hydroxyurea 500 MG CAPSULE 1000 MG PO (16:33)
[2023-03-27] MEDS: 0.9 % Sodium Chloride 1,000 ML 150 ML IV (16:33)
[2023-03-27 16:34] LABS: Troponin-I High Sensitivity 4.5 ng/L (<3.5-17.0)
[2023-03-27 16:43] LABS: COVID-19 Test Negative (Negative); IDNOW Serial# 9DB6401D; IDNOW Serial# BCCEAD1C; Influenza A Negative (Negative); Influenza B2 Negative (Negative)
[2023-03-27 16:46] LABS: B Type Natriuretic Peptide 102 pg/mL (<100)
[2023-03-27] MEDS: cefTRIAXone sodium 1 GM in 0.9 % Sodium Chloride 50 ML IV (18:35)
--- NOTE | 2023-03-27 19:32 | PC.NURSE ---
this RN took report and went into meet pt. EMS at bedside ready o transport pt to [facility]. EMS is BLS, all IVs stopped, vitals done, assist pt to the bathroom.
[2023-03-27 19:33] VITALS: BP 156/63; PULSE 113; RESP 24; TEMP 36.7; O2SAT 93
--- NOTE | 2023-03-27 20:01 | PC.NURSE ---
this RN attempted to give report to [facility] ED. Report not given. Was told they will call back when they can in a few minutes.
== END 2023-03-27 20:36 | disposition short-term general hospital (02) ==
PROVIDERS: Emergency Provider Emergency Medicine Emergency Medical Services; PCP Nurse Practitioner Family
DX: J18.9 Pneumonia, unspecified organism (principal); D69.6 Thrombocytopenia, unspecified; R09.02 Hypoxemia; D64.9 Anemia, unspecified; H53.9 Unspecified visual disturbance; R06.02 Shortness of breath; R50.9 Fever, unspecified; Z11.52 Encounter for screening for COVID-19; E11.9 Type 2 diabetes mellitus without complications; I10 Essential (primary) hypertension; E78.5 Hyperlipidemia, unspecified; Z87.891 Personal history of nicotine dependence; Z79.899 Other long term (current) drug therapy
CPT/HCPCS: 36415; 70450; 71275; 83605; 83880; 84484; 85610; 85730; 87040; 87502; 87635; 93005; 96361; 96374; 99285; J0696; Q9967